=== PATIENT | female | born 2000 | race African-American/Black ===

== ENCOUNTER 2018-09-21 09:19 | Emergency (ER) | payer OTHER ==
[2018-09-21 11:28] VITALS: BP 112/68
--- NOTE | 2018-09-21 11:56 | UC ---
Abdominal Pain Female HPI - HPI Summary HPI Summary: Ms. Hollis presented with suprapubic pain that she noticed yesterday when she got up. She was nauseated and vomited once. Now the pain is minor but she noticed it when she tried to fasten her pants and it hurts to move around. She is not nauseated anymore. - History of Current Complaint Chief Complaint: UCAbdominalPain Stated Complaint: stomach pain Time Seen by Provider: 09/21/18 09:41 Hx Obtained From: Patient Hx Last Menstrual Period: iud ?: No - spotting some 2 weeks ago which is normal for her. Onset/Duration: Sudden Onset Timing: Constant Severity Initially: Moderate Severity Currently: Mild Pain Intensity: 7 Location: Suprapubic Radiates: No Character: Dull Aggravating Factor(s): Movement Alleviating Factor(s): Nothing Associated Signs and Symptoms: Positive: Negative, Nausea, Vomiting - Risk Factors Ectopic Risk Factor: IUD Use Ovarian Torsion Risk Factor: Reproductive Age Allergies/Adverse Reactions: Allergies Allergy/AdvReac Type Severity Reaction Status Date / Time amoxicillin Allergy Rash Verified 09/21/18 09:27 bee venom protein (honey bee) Allergy Hives Verified 09/21/18 09:27 Home Medications: Home Medications Budesonide/Formote 80/4.5(NF) [Symbicort 80/4.5 (NF)] 1 puff INH BID 09/21/18 [ History Confirmed 09/21/18] Montelukast Sodium TAB* [Singulair TAB*] 10 mg PO DAILY 09/21/18 [History Confirmed 09/21/18] PMH/Surg Hx/FS Hx/Imm Hx Previously Healthy: Yes - Surgical History Surgical History: Yes Surgery Procedure, Year, and Place: ENLARGED INQUINAL LYMPH NODE REMOVED 2011 - Family History Known Family History: Positive: None - Social History Alcohol Use: Occasionally Substance Use Type: None Smoking Status (MU): Never Smoked Tobacco Have You Smoked in the Last Year: No - Immunization History Most Recent Influenza Vaccination: 2014 Most Recent Tetanus Shot: UTD Vaccination Up to Date: Yes Review of Systems All Other Systems Reviewed And Are Negative: Yes Constitutional: Positive: Negative Gastrointestinal: Positive: Negative Genitourinary: Positive: Negative Physical Exam - Summary Physical Exam Summary: She was non-toxic in appearance with stable vitals. Triage Information Reviewed: Yes Appearance: Well-Appearing Vital Signs: Initial Vital Signs Temp 97.9 F 09/21/18 09:23 Pulse 67 09/21/18 09:23 Resp 18 09/21/18 09:23 BP 108/70 09/21/18 09:23 Pulse Ox 100 09/21/18 09:23 Vital Signs Reviewed: Yes Respiratory Exam: Normal Cardiovascular Exam: Normal Abdominal Exam: Other - Mild right adnexal tenderness. She had no rebound or guarding. Bowel Sounds: Positive: Present Diagnostics - Radiology U/S Appendix Radiology Interpretation Completed By: Radiologist - normal appendix visualized U/S Transvaginal Radiology Interpretation Completed By: Radiologist - moderately large right ovarian cyst with free fluid. Abd Pain Female Course/Dx - Course Course Of Treatment: It seems likely that the cyst is associated with her pain given the H&P. She wants to hold off on a pelvic exam at this time. She understands that the diagnosis is uncertain although I think probable and will return or F/U if things change. She declined any pain medication at this time. - Differential Dx/Diagnosis Provider Diagnosis: Ovarian cyst, Right lower quadrant abdominal pain Discharge - Sign-Out/Discharge Documenting (check all that apply): Patient Departure All imaging exams completed and their final reports reviewed: Yes - Discharge Plan Condition: Stable Disposition: HOME Patient Education Materials: Ovarian Cyst (ED), Pelvic Pain in Women (ED) Referrals: Kasia De La O MD [Primary Care Provider] - - Billing Disposition and Condition Condition: STABLE Disposition: Home
== END 2018-09-21 12:05 | disposition home or self-care (01) ==
LOC: UCEAST 09:19
DX: N83.201 Unspecified ovarian cyst, right side (principal); R10.31 Right lower quadrant pain; Z97.5 Presence of (intrauterine) contraceptive device; Z88.3 Allergy status to other anti-infective agents
CPT/HCPCS: 76705; 76830; 81003; 84702; 99211; G0463

== ENCOUNTER 2018-11-30 23:42 | Emergency (ER) | payer OTHER ==
[2018-12-01 00:58] LABS: ABS Eosinophils 0.1 10^3/ul (0-0.6); ABS Lymphocytes 3.9 10^3/ul (1.0-4.8); ABS Monocytes 0.6 10^3/ul (0-0.8); ABS Neutrophils 2.6 10^3/ul (1.5-7.7); Hematocrit 39 % (35-47); Hemoglobin 13.3 g/dL (12.0-16.0); Lymphocyte % 53.6 %; Mean Corpuscular HGB Conc 34 g/dL (31-36); Mean Corpuscular Hemoglobin 30 pg (27-31); Mean Corpuscular Volume 88 fL (80-97); Mean Platelet Volume 9.3 fL (7.4-10.4); Nucleated Red Blood Cells % 0.2; Platelet Count 179 10^3/uL (150-450); Red Blood Count 4.44 10^6 /uL (3.70-4.87); Red Cell Distribution Width 13 % (10-15); White Blood Count 7.3 10^3/uL (3.5-10.8)
[2018-12-01 01:23] LABS: ALT 11 U/L (7-52); AST 16 U/L (13-39); Albumin 4.4 g/dL (3.2-5.2); Albumin/Globulin Ratio 1.5 (1-3); Alkaline Phosphatase 46 U/L (34-104); Anion Gap 7 mmol/L (2-11); Blood Urea Nitrogen 15 mg/dL (6-24); C Reactive Protein < 1.00 mg/L (<8.01); CO2 Carbon Dioxide 27 mmol/L (22-32); Calcium 9.8 mg/dL (8.6-10.3); Chloride 103 mmol/L (101-111); EGFR African American 112.3 (>60); EGFR Non-African American 92.8 (>60); Globulin 2.9 g/dL (2-4); Glucose 99 mg/dL (70-100); Potassium 3.9 mmol/L (3.5-5.0); Sodium 137 mmol/L (135-145); Total Protein 7.3 g/dL (6.4-8.9)
[2018-12-01 01:28] LABS: HCG Pregnancy < 0.60 mIU/mL
--- NOTE | 2018-12-01 01:55 | ED ---
GI/ HPI - HPI Summary HPI Summary: 18-year-old female presents with right-sided pelvic pain for the past couple days. States pain sometimes radiates down leg. denies any back or hip pain. no numbness or tingling. She said the pain seemed to radiate down her legs. She had this same pain in the past that was more intense months ago and was diagnosis with ovary cyst. States she's been having some weight loss. Admits to some nausea but no vomiting. Denies any urinary symptoms. Does admit to some vaginal discharge but denies any itchiness or foul odor. No diarrhea constipation. Pain does not radiate to the back. Denies any chance of . Has an IUD in place. - History of Current Complaint Chief Complaint: EDAbdPain Time Seen by Provider: 12/01/18 00:36 Stated Complaint: RT SIDED ABD PAIN PER PT Hx Last Menstrual Period: iud Pain Intensity: 7 - Allergy/Home Medications Allergies/Adverse Reactions: Allergies Allergy/AdvReac Type Severity Reaction Status Date / Time amoxicillin Allergy Rash Verified 11/30/18 23:54 bee venom protein (honey bee) Allergy Hives Verified 11/30/18 23:54 Penicillins Allergy Rash Verified 11/30/18 23:54 PMH/Surg Hx/FS Hx/Imm Hx Endocrine/Hematology History: Denies: Hx Diabetes, Hx Systemic Lupus Erythematosus, Hx Thyroid Disease Cardiovascular History: Denies: Hx Congestive Heart Failure, Hx Hypertension, Hx Pacemaker/ICD Respiratory History: Reports: Hx Asthma Denies: Hx Chronic Obstructive Pulmonary Disease (COPD) GI History: Reports: Other GI Disorders - 1 YEAR AGO HAD A PROBLEM WITH UPSET GI - NOTHING NOW Denies: Hx Ulcer History: Denies: Hx Dialysis, Hx Renal Disease Musculoskeletal History: Denies: Hx Rheumatoid Arthritis, Hx Osteoporosis Sensory History: Reports: Hx Contacts or Glasses - GLASSES Denies: Hx Hearing Aid Opthamlomology History: Reports: Hx Contacts or Glasses - GLASSES Psychiatric History: Denies: Hx Panic Disorder - Cancer History Hx Chemotherapy: No - Surgical History Surgery Procedure, Year, and Place: ENLARGED INQUINAL LYMPH NODE REMOVED 2011 Infectious Disease History: No Infectious Disease History: Reports: History Other Infectious Disease - RECENT MONO Denies: Hx Hepatitis, Hx Human Immunodeficiency Virus (HIV), Traveled Outside the [place] in Last 30 Days - Family History Known Family History: Positive: None, Non-Contributory - Social History Alcohol Use: Occasionally Substance Use Type: Reports: None Smoking Status (MU): Never Smoked Tobacco Have You Smoked in the Last Year: No Review of Systems Negative: Fever Negative: Chest Pain Negative: Shortness Of Breath Positive: Abdominal Pain, Nausea. Negative: Vomiting, Diarrhea All Other Systems Reviewed And Are Negative: Yes Physical Exam Triage Information Reviewed: Yes Vital Signs On Initial Exam: Initial Vitals Temp Pulse Resp BP Pulse Ox 97.9 F 59 16 130/83 98 11/30/18 23:50 11/30/18 23:50 11/30/18 23:50 11/30/18 23:50 11/30/18 23:50 Vital Signs Reviewed: Yes Appearance: Positive: Well-Appearing Skin: Positive: Warm, Dry Head/Face: Positive: Normal Head/Face Inspection Eyes: Positive: Normal, EOMI, STARR, Conjunctiva Clear ENT: Positive: Normal ENT inspection, Pharynx normal, TMs normal Respiratory/Lung Sounds: Positive: Clear to Auscultation, Breath Sounds Present Cardiovascular: Positive: Normal, RRR Abdomen Description: Positive: Soft, Other: - tenderness in right pelvic area Bowel Sounds: Positive: Present Pelvic Exam: Positive: External Exam Normal, Speculum Exam Normal, Bimanual Exam Normal, No Cerv. Motion Tender, Tender Adnexa - right Musculoskeletal: Positive: Normal Neurological: Positive: Normal Psychiatric: Positive: Normal Diagnostics - Vital Signs Vital Signs Temp Pulse Resp BP Pulse Ox 11/30/18 23:50 97.9 F 59 16 130/83 98 - Laboratory Lab Results: Lab Results 12/01/18 12/01/18 Range/Units 00:49 00:49 WBC 7.3 (3.5-10.8) 10^3/uL RBC 4.44 (3.70-4.87) 10^6 /uL Hgb 13.3 (12.0-16.0) g/dL Hct 39 (35-47) % MCV 88 (80-97) fL MCH 30 (27-31) pg MCHC 34 (31-36) g/dL RDW 13 (10-15) % Plt Count 179 (150-450) 10^3/uL MPV 9.3 (7.4-10.4) fL Neut % (Auto) 35.9 % Lymph % (Auto) 53.6 % [place] % (Auto) 8.0 % Eos % (Auto) 2.0 % Baso % (Auto) 0.5 % Absolute Neuts (auto) 2.6 (1.5-7.7) 10^3/ul Absolute Lymphs (auto) 3.9 (1.0-4.8) 10^3/ul Absolute Monos (auto) 0.6 (0-0.8) 10^3/ul Absolute Eos (auto) 0.1 (0-0.6) 10^3/ul Absolute Basos (auto) 0.0 (0-0.2) 10^3/ul Absolute Nucleated RBC 0.0 10^3/ul Nucleated RBC % 0.2 Sodium 137 (135-145) mmol/L Potassium 3.9 (3.5-5.0) mmol/L Chloride 103 (101-111) mmol/L Carbon Dioxide 27 (22-32) mmol/L Anion Gap 7 (2-11) mmol/L BUN 15 (6-24) mg/dL Creatinine 0.79 (0.51-0.95) mg/dL Est GFR ( Amer) 112.3 (>60) Est GFR (Non-Af Amer) 92.8 (>60) BUN/Creatinine Ratio 19.0 (8-20) Glucose 99 (70-100) mg/dL Calcium 9.8 (8.6-10.3) mg/dL Total Bilirubin 0.80 (0.2-1.0) mg/dL AST 16 (13-39) U/L ALT 11 (7-52) U/L Alkaline Phosphatase 46 (34-104) U/L C-Reactive Protein < 1.00 (<8.01) mg/L Total Protein 7.3 (6.4-8.9) g/dL Albumin 4.4 (3.2-5.2) g/dL Globulin 2.9 (2-4) g/dL Albumin/Globulin Ratio 1.5 (1-3) Lipase 39 (11.0-82.0) U/L Beta HCG, Quant < 0.60 mIU/mL Result Diagrams: 12/01/18 00:49 12/01/18 00:49 Lab Statement: Any lab studies that have been ordered have been reviewed, and results considered in the medical decision making process. GIGU Course/Dx - Course Course Of Treatment: 18-year-old female presents with right-sided pelvic pain for the past couple days. States pain sometimes radiates down leg. denies any back or hip pain. no numbness or tingling. She said the pain seemed to radiate down her legs. She had this same pain in the past that was more intense months ago and was diagnosis with ovary cyst. States she's been having some weight loss. Admits to some nausea but no vomiting. Denies any urinary symptoms. Does admit to some vaginal discharge but denies any itchiness or foul odor. No diarrhea constipation. Pain does not radiate to the back. Denies any chance of . Has an IUD in place. On exam tenderness of right pelvic area. Tenderness over right adnexa on pelvic exam. No cervical motion tenderness. No abnormal vaginal discharge. wbc normal. CRP normal. Do not suspect appendicitis. Transvaginal ultrasound shows no acute findings. urine shows no infection. told to take Tylenol ibuprofen for pain. Patient understands agrees with plan. - Diagnoses Differential Diagnoses - Female: Ovarian Cyst, STD, Urinary Tract Infection Provider Diagnoses: Pelvic pain Discharge - Sign-Out/Discharge Documenting (check all that apply): Patient Departure Patient Received Moderate/Deep Sedation with Procedure: No - Discharge Plan Condition: Good Disposition: HOME Patient Education Materials: Pelvic Pain in Women (ED) Referrals: Kasia De La O MD [Primary Care Provider] - Additional Instructions: follow up with drama teacher take ibuprofen as needed for pain Apply heat to the area Return to ED if develop any new or worsening symptoms - Billing Disposition and Condition Condition: GOOD Disposition: Home
[2018-12-01 02:14] LABS: Urine Appearance Clear; Urine Bilirubin Negative (Negative); Urine Blood Negative (Negative); Urine Color Straw; Urine Glucose Negative (Negative); Urine Ketones Negative (Negative); Urine Nitrite Negative (Negative); Urine Protein Negative (Negative); Urine Urobilinogen Negative (Negative)
[2018-12-01] MEDS ORDERED: Ibuprofen TAB* 600 MG PO ONE (02:18)
[2018-12-01 02:51] VITALS: BP 119/76
[2018-12-01 13:28] LABS: Trichomonas vaginalis Result Negative (Negative)
[2018-12-02 12:53] LABS: Neisseria gonorrhoeae (GC) RNA Negative (Negative)
== END 2018-12-01 02:50 | disposition home or self-care (01) ==
LOC: ED 23:42
DX: R10.2 Pelvic and perineal pain (principal); R11.0 Nausea; R63.4 Abnormal weight loss; N89.8 Other specified noninflammatory disorders of vagina; Z32.02 Encounter for pregnancy test, result negative; Z97.5 Presence of (intrauterine) contraceptive device; Z88.0 Allergy status to penicillin; Z91.030 Bee allergy status
CPT/HCPCS: 36415; 76830; 80053; 81003; 83690; 84702; 85025; 86140; 87480; 87491; 87510; 87591; 87661; 99282; A9270-GY